=== PATIENT | female | born 1985 | race Caucasian/White ===

== ENCOUNTER → 2018-01-07 | Outpatient (CLI) | payer MEDICAID ==
--- NOTE | 2018-01-07 15:07 | RADIOLOGY REPORT (SQ) ---
EXAM DESCRIPTION: U/S OB 14+ TRNABD 1GES W/O DOP COMPLETED DATE/TIME: 01/07/2018 2:38 pm REASON FOR STUDY: ENCTR FOR SUPERVISION OF OTHER NORMAL , 3RD TRIMESTER (Z34.83) Z34.83 EN COUNTER FOR SUPRVSN OF NORMAL , THIRD TRIM COMPARISON: None. TECHNIQUE: Static and Dynamic grayscale imaging performed of gravid uterus using transabdominal appr oach. Additional selected color Doppler and spectral images recorded. All stored on PACS. LIMITATIONS: None. FINDINGS: EGA: 28 weeks 1 day DEBBI: 03/31/2018 EFW: Twin a 1,144 +/-169 twin B 1125 +/- 167 grams PERCENTILE: Not recorded LVP: Twin a 6.7 cm twin B 8.6 cm PLACENTA: Twin a posterior and twin B fundal PRESENTATION: Twin A footling breech twin B breech ANATOMY: HEART RATE: Twin a 145 twin B not recorded beats per minute. FOUR CHAMBER HEART: Visualized. THREE VESSEL CORD: Yes. CORD INSERTION: Not seen. KIDNEYS AND BLADDER: Visualized. Appear normal. STOMACH: Visualized. Appears normal. SPINE: Normal as visualized. BRAIN AND LATERAL VENTRICLES: Visualized. Appear normal. OTHER: No other significant finding. MATERNAL ADNEXA: Maternal ovaries not visualized. CERVICAL LENGTH: 3.4 cm Closed. OTHER: No other significant finding. IMPRESSION: LIVING TWIN INTRAUTERINE . ESTIMATED GESTATIONAL AGE 28 WEEKS 1 DAY NO VISUALIZED ANOMALIES. Trimester of : Third trimester - 28 weeks to delivery. TECHNICAL DOCUMENTATION: JOB ID: [id number] [employer]- All Rights Reserved Reading location - IP/workstation name: [email or web address]
--- NOTE | 2018-01-07 16:57 | RADIOLOGY REPORT (SQ) ---
EXAM DESCRIPTION: U/S 12829 + EACH ADDIT GEST COMPLETE DATE/TIME: 01/07/2018 2:38 pm REASON FOR STUDY: S/D Z34.83 ENCOUNTER FOR SUPRVSN OF NORMAL , THIRD TRIM FINDINGS: Please see combined report for performance of procedure and radiologic supervision and int erpretation. IMPRESSION: Please see combined report for performance of procedure and radiologic supervision and i nterpretation. Reading location - IP/workstation name: [email or web address]
== END ==
LOC: RAD 12:42
PROVIDERS: ATTEND Nurse Practitioner Women's Health
DX: O30.003 Twin pregnancy, unspecified number of placenta and unspecified number of amniotic sacs, third trimester (principal); Z3A.28 28 weeks gestation of pregnancy
CPT/HCPCS: 76805; 76810

== ENCOUNTER 2018-02-05 12:16 | Outpatient (CLI) | payer MEDICAID ==
[2018-02-05 13:06] LABS: APPEARANCE,URINE CLEAR; BILIRUBIN,URINE NEGATIVE (NEGATIVE); COLOR,URINE YELLOW; GLUCOSE, URINE NEGATIVE (NEGATIVE); KETONES,URINE NEGATIVE (NEGATIVE); LEUKOCYTE ESTERASE,URINE NEGATIVE (NEGATIVE); NITRITE,URINE NEGATIVE (NEGATIVE); PROTEIN,URINE NEGATIVE (NEGATIVE); URINE SPECIFIC GRAVITY 1.014; UROBILINOGEN,URINE NEGATIVE mg/dL (<2.0)
[2018-02-05 13:07] LABS: ABSOLUTE EOSINOPHILS # (AUTO) 0.1 10^3/uL (0.0-0.6); ABSOLUTE LYMPHOCYTES (AUTO) 1.6 10^3/uL (0.5-4.7); ABSOLUTE MONOCYTES (AUTO) 0.4 10^3/uL (0.1-1.4); BASOPHILS % (AUTO) 0.2 % (0-2); EOSINOPHILS % (AUTO) 1.1 % (0-6); HEMOGLOBIN 12.5 g/dL (12.0-15.5); LYMPHOCYTES % (AUTO) 17.1 % (13-45); MEAN CORPUSCULAR HEMOGLOBIN 30.8 pg (27.0-33.4); MEAN CORPUSCULAR HGB CONC 34.7 g/dL (32.0-36.0); MEAN CORPUSCULAR VOLUME 89 fl (80-97); MONOCYTES % (AUTO) 4.9 % (3-13); PLATELET COUNT 200 10^3/uL (150-450); RED BLOOD COUNT 4.06 10^6/uL (3.72-5.28); RED CELL DISTRIBUTION WIDTH 12.5 % (11.5-14.0); SEGMENTED NEUTROPHILS % (AUTO) 76.7 % (42-78); TOTAL CELLS COUNTED % (AUTO) 100 %; WHITE BLOOD COUNT 9.1 10^3/uL (4.0-10.5)
[2018-02-05 13:26] LABS: UR PRO/CREAT RATIO RESULT 0.1 mg/mg (0.0-0.2); URINE CREATININE 98.8 mg/dL (16-327); URINE PROTEIN 10.8 mg/dL (<12)
[2018-02-05 13:40] LABS: URINE AMPHETAMINES SCREEN NEGATIVE; URINE BARBITURATES SCREEN NEGATIVE; URINE BENZODIAZEPINES SCREEN NEGATIVE; URINE COCAINE SCREEN NEGATIVE; URINE MARIJUANA (THC) SCREEN NEGATIVE; URINE METHADONE SCREEN NEGATIVE; URINE PHENCYCLIDINE SCREEN NEGATIVE
[2018-02-05 13:44] LABS: ALANINE AMINOTRANSFERASE 32 U/L (9-52); ALBUMIN 2.9 g/dL (3.5-5.0); ALKALINE PHOSPHATASE 129 U/L (38-126); ANION GAP 9 (5-19); ASPARTATE AMINO TRANSFERASE 35 U/L (14-36); BILIRUBIN,DIRECT 0.2 mg/dL (0.0-0.4); BILIRUBIN,TOTAL 0.3 mg/dL (0.2-1.3); BLOOD UREA NITROGEN 11 mg/dL (7-20); CALCIUM 8.9 mg/dL (8.4-10.2); CARBON DIOXIDE 21 mmol/L (22-30); CHLORIDE 108 mmol/L (98-107); GLUCOSE 65 mg/dL (75-110); LDH 587 U/L (313-618); POTASSIUM 3.9 mmol/L (3.6-5.0); TOTAL PROTEIN 5.7 g/dL (6.3-8.2); URIC ACID 4.1 mg/dL (2.5-6.2)
== END 2018-02-05 14:21 | disposition home or self-care (01) ==
LOC: LC 12:16
PROVIDERS: ATTEND Obstetrics & Gynecology
PROC: 4A1HXCZ Monitoring of Products of Conception, Cardiac Rate, External Approach (ICD-10-PCS; principal; 2018-02-05)
DX: O47.03 False labor before 37 completed weeks of gestation, third trimester (principal); Z3A.32 32 weeks gestation of pregnancy
CPT/HCPCS: 36415; 59025; 80053; 80307; 81001; 82570; 83615; 84156; 84550; 85025

== ENCOUNTER 2018-03-07 12:00 | Outpatient (CLI) | payer MEDICAID ==
--- NOTE | 2018-03-07 12:04 | Non Stress Test Report ---
Non Stress Test Datetime Report Generated by CPN: 03/07/2018 12:04 DEMOGRAPHIC EGA NST: 32.2 INDICATION Indication for Study: Gestational Hypertension MONITORING Monitor Explained: Monitor Explained; Test Explained; Patient Verbalized Understanding Time on Monitor: 02/05/2018 12:36 Time off Monitor: 02/05/2018 14:12 NST Duration: 96 NST INTERVENTIONS NST Interventions: PO Hydration; Reposition Patient Physician Notified NST: J.Matute, CNM BABY A: [id number] BABY A Movement : Present Contraction Frequency : Irregular FHR Baseline : 140 Accelerations : 15X15 Decelerations : None Variability : Moderate 6-25bpm NST Review: Meets Criteria for Reactive NST NST Review and Verified By : Phyllis Nobles RNC NST Results: Reactive BABY B Movement: Present FHR Baseline: 135 Accelerations: 15X15 Decelerations: None Variability: Moderate 6-25bpm NST Review: Meets Criteria for Reactive NST NST Reviewed And Verified By: Phyllis Camp RNC NST Results: Reactive NST REPORT Report Trigger: Send Report
[2018-03-07 12:36] LABS: APPEARANCE,URINE CLEAR; BILIRUBIN,URINE NEGATIVE (NEGATIVE); COLOR,URINE YELLOW; GLUCOSE, URINE NEGATIVE (NEGATIVE); KETONES,URINE NEGATIVE (NEGATIVE); LEUKOCYTE ESTERASE,URINE NEGATIVE (NEGATIVE); NITRITE,URINE NEGATIVE (NEGATIVE); PROTEIN,URINE NEGATIVE (NEGATIVE); URINE SPECIFIC GRAVITY 1.012; UROBILINOGEN,URINE NEGATIVE mg/dL (<2.0)
[2018-03-07 12:55] LABS: ABSOLUTE EOSINOPHILS # (AUTO) 0.2 10^3/uL (0.0-0.6); ABSOLUTE LYMPHOCYTES (AUTO) 1.3 10^3/uL (0.5-4.7); ABSOLUTE MONOCYTES (AUTO) 0.4 10^3/uL (0.1-1.4); ABSOLUTE NEUT (AUTO) 7.6 10^3/uL (1.7-8.2); BASOPHILS % (AUTO) 0.2 % (0-2); EOSINOPHILS % (AUTO) 2.2 % (0-6); HEMATOCRIT 35.1 % (36.0-47.0); HEMOGLOBIN 12.3 g/dL (12.0-15.5); MEAN CORPUSCULAR HEMOGLOBIN 30.7 pg (27.0-33.4); MEAN CORPUSCULAR HGB CONC 35.1 g/dL (32.0-36.0); MEAN CORPUSCULAR VOLUME 88 fl (80-97); MONOCYTES % (AUTO) 4.2 % (3-13); PLATELET COUNT 192 10^3/uL (150-450); RED BLOOD COUNT 4.01 10^6/uL (3.72-5.28); RED CELL DISTRIBUTION WIDTH 13.3 % (11.5-14.0); SEGMENTED NEUTROPHILS % (AUTO) 79.4 % (42-78); TOTAL CELLS COUNTED % (AUTO) 100 %; WHITE BLOOD COUNT 9.5 10^3/uL (4.0-10.5)
[2018-03-07 13:05] LABS: URINE AMPHETAMINES SCREEN NEGATIVE; URINE BARBITURATES SCREEN NEGATIVE; URINE BENZODIAZEPINES SCREEN NEGATIVE; URINE COCAINE SCREEN NEGATIVE; URINE MARIJUANA (THC) SCREEN NEGATIVE; URINE METHADONE SCREEN NEGATIVE; URINE PHENCYCLIDINE SCREEN NEGATIVE
--- NOTE | 2018-03-07 13:08 | Non Stress Test Report ---
Non Stress Test Datetime Report Generated by CPN: 03/07/2018 13:07 DEMOGRAPHIC EGA NST: 36.4 INDICATION Indication for Study: Ordered by Provider MONITORING Monitor Explained: Monitor Explained; Test Explained; Patient Verbalized Understanding Time on Monitor: 03/07/2018 12:18 Time off Monitor: 03/07/2018 13:06 NST Duration: 48 NST INTERVENTIONS NST Interventions: PO Hydration Physician Notified NST: A Guadalupe CNM BABY A Movement : Present Contraction Frequency : irr FHR Baseline : 150 Accelerations : 15X15 Decelerations : None Variability : Moderate 6-25bpm NST Review: Meets Criteria for Reactive NST NST Review and Verified By : Breanna Basurto RN NST Results: Reactive BABY B Movement: Present FHR Baseline: 145 Accelerations: 15X15 Decelerations: None Variability: Moderate 6-25bpm NST Review: Meets Criteria for Reactive NST NST Reviewed And Verified By: A Basurto RN NST Results: Reactive NST REPORT Report Trigger: Send Report
[2018-03-07 13:10] LABS: UR PRO/CREAT RATIO RESULT 0.1 mg/mg (0.0-0.2); URINE CREATININE 99.9 mg/dL (16-327); URINE PROTEIN 10.7 mg/dL (<12)
[2018-03-07 13:25] LABS: ALANINE AMINOTRANSFERASE 25 U/L (9-52); ALBUMIN 2.8 g/dL (3.5-5.0); ALKALINE PHOSPHATASE 187 U/L (38-126); ANION GAP 11 (5-19); ASPARTATE AMINO TRANSFERASE 28 U/L (14-36); BILIRUBIN,DIRECT 0.2 mg/dL (0.0-0.4); BILIRUBIN,TOTAL 0.3 mg/dL (0.2-1.3); BLOOD UREA NITROGEN 10 mg/dL (7-20); CALCIUM 8.5 mg/dL (8.4-10.2); CARBON DIOXIDE 21 mmol/L (22-30); CHLORIDE 110 mmol/L (98-107); GLUCOSE 73 mg/dL (75-110); LDH 585 U/L (313-618); POTASSIUM 3.9 mmol/L (3.6-5.0); SODIUM 141.5 mmol/L (137-145); TOTAL PROTEIN 5.6 g/dL (6.3-8.2); URIC ACID 5.3 mg/dL (2.5-6.2)
== END 2018-03-07 13:53 | disposition home or self-care (01) ==
LOC: LC 12:00
PROVIDERS: ATTEND Obstetrics & Gynecology
PROC: 4A1HXCZ Monitoring of Products of Conception, Cardiac Rate, External Approach (ICD-10-PCS; principal; 2018-03-07)
DX: O13.3 Gestational [pregnancy-induced] hypertension without significant proteinuria, third trimester (principal); O30.043 Twin pregnancy, dichorionic/diamniotic, third trimester; Z3A.36 36 weeks gestation of pregnancy
CPT/HCPCS: 36415; 59025; 80053; 80307; 81001; 82570; 83615; 84156; 84550; 85025

== ENCOUNTER 2018-03-10 06:00 | Inpatient (IN) | payer MEDICAID ==
[2018-03-10] MEDS ORDERED: LIDOCAINE 1% INJ-PF (10 MG/ML) 30 ML SDV ONE (06:06)
[2018-03-10] MEDS ORDERED: OXYTOCIN/NORMAL SALINE 20 UNIT/1,000 ML RTUINJ ONE ×2 (06:06→20:23)
[2018-03-10] MEDS ORDERED: PENICILLIN G-K 5 MILLION UNIT VIAL ONE ×5 (06:06→23:32)
[2018-03-10] MEDS ORDERED: MISOPROSTOL 0.2 MG TABLET ONE (06:06)
[2018-03-10] MEDS ORDERED: RINGERS SOLUTION,LACTATED 300 ML IV ONE (06:15)
[2018-03-10] MEDS ORDERED: PENICILLIN G POTASSIUM 5,000,000 UNIT in DEXTROSE 5%-WATER 100 ML IV ONE (06:15)
[2018-03-10] MEDS ORDERED: RINGERS SOLUTION,LACTATED 1,000 ML IV PRN (06:15)
[2018-03-10 07:06] LABS: ABSOLUTE EOSINOPHILS # (AUTO) 0.2 10^3/uL (0.0-0.6); ABSOLUTE LYMPHOCYTES (AUTO) 1.8 10^3/uL (0.5-4.7); ABSOLUTE MONOCYTES (AUTO) 0.5 10^3/uL (0.1-1.4); ABSOLUTE NEUT (AUTO) 5.5 10^3/uL (1.7-8.2); BASOPHILS % (AUTO) 0.4 % (0-2); EOSINOPHILS % (AUTO) 2.5 % (0-6); HEMATOCRIT 34.6 % (36.0-47.0); HEMOGLOBIN 12.2 g/dL (12.0-15.5); LYMPHOCYTES % (AUTO) 22.7 % (13-45); MEAN CORPUSCULAR HEMOGLOBIN 31.1 pg (27.0-33.4); MEAN CORPUSCULAR HGB CONC 35.2 g/dL (32.0-36.0); MEAN CORPUSCULAR VOLUME 88 fl (80-97); MONOCYTES % (AUTO) 5.9 % (3-13); PLATELET COUNT 190 10^3/uL (150-450); RED BLOOD COUNT 3.92 10^6/uL (3.72-5.28); RED CELL DISTRIBUTION WIDTH 13.5 % (11.5-14.0); SEGMENTED NEUTROPHILS % (AUTO) 68.5 % (42-78); TOTAL CELLS COUNTED % (AUTO) 100 %
[2018-03-10 07:29] LABS: ALANINE AMINOTRANSFERASE 24 U/L (9-52); ALBUMIN 2.6 g/dL (3.5-5.0); ALKALINE PHOSPHATASE 181 U/L (38-126); ANION GAP 7 (5-19); ASPARTATE AMINO TRANSFERASE 30 U/L (14-36); BILIRUBIN,DIRECT 0.2 mg/dL (0.0-0.4); BILIRUBIN,TOTAL 0.3 mg/dL (0.2-1.3); BLOOD UREA NITROGEN 10 mg/dL (7-20); CARBON DIOXIDE 23 mmol/L (22-30); CHLORIDE 109 mmol/L (98-107); GLUCOSE 83 mg/dL (75-110); LDH 540 U/L (313-618); POTASSIUM 3.7 mmol/L (3.6-5.0); SODIUM 138.9 mmol/L (137-145); TOTAL PROTEIN 5.3 g/dL (6.3-8.2); URIC ACID 5.6 mg/dL (2.5-6.2)
[2018-03-10 07:30] LABS: APPEARANCE,URINE SLIGHTLY-CLOUDY; BILIRUBIN,URINE NEGATIVE (NEGATIVE); COLOR,URINE STRAW; GLUCOSE, URINE NEGATIVE (NEGATIVE); KETONES,URINE NEGATIVE (NEGATIVE); LEUKOCYTE ESTERASE,URINE TRACE (NEGATIVE); NITRITE,URINE NEGATIVE (NEGATIVE); PROTEIN,URINE NEGATIVE (NEGATIVE); URINE SPECIFIC GRAVITY 1.003; UROBILINOGEN,URINE NEGATIVE mg/dL (<2.0)
[2018-03-10 07:38] LABS: URINE AMPHETAMINES SCREEN NEGATIVE; URINE BARBITURATES SCREEN NEGATIVE; URINE BENZODIAZEPINES SCREEN NEGATIVE; URINE COCAINE SCREEN NEGATIVE; URINE MARIJUANA (THC) SCREEN NEGATIVE; URINE METHADONE SCREEN NEGATIVE; URINE PHENCYCLIDINE SCREEN NEGATIVE
[2018-03-10 09:23] LABS: UR PRO/CREAT RATIO RESULT 0.5 mg/mg (0.0-0.2); URINE CREATININE 29.9 mg/dL (16-327); URINE PROTEIN 15.5 mg/dL (<12)
[2018-03-10] MEDS: PENICILLIN G POTASSIUM 2,500,000 UNIT in DEXTROSE 5%-WATER 50 ML IV SCH ×3 (10:16→20:04)
--- NOTE | 2018-03-10 11:01 | Admission Physical ---
Datetime Report Generated by CPN: 03/10/2018 11:00 CURRENT ADMISSION Chief Complaint: Scheduled Induction of Labor Indication for Induction: Gestational HTN; Other Indication for Induction- Other: di/di twin gestation Admit Impression : No Active Labor; Induction of Labor; Admit Plan: Admit to Unit; Initiate Labor Induction Protocol ALLERGIES Medication Allergies: No Medication Allergies: No Known Drug Allergies (03/10/2018) Latex: No Latex Allergies Food Allergies: none Environmental Allergies: none OBSTETRICAL HISTORY EDC: 03/31/2018 00:00 : 4 Para: 3 Term: 3 : 0 SAB: 0 IAB: 0 Ectopic: 0 Livin Cesareans: 1 VBACs: 0 Multiple Births: 0 Gestational Diabetes: No Rh Sensitization: No Incompetent Cervix: No INA: No Infertility: No ART Treatment: No Uterine Anomaly: No IUGR: No Hx Previous C/S: Yes Macrosomia: No Hx Loss/Stillborn: No PIH: No Hx : No Placenta Previa/Abruption: No Depression/PP Depression: No PTL/PROM: No Post Hemorrhage: No Current Procedures: Ultrasound; NST Obstetrical History Comments: G1 - 2008, G2 - 2009, G3 - 2013, 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 [id number] MEDICAL HISTORY Diabetes: No Blood Transfusion: No Pulmonary Disease (Asthma, TB): No Breast Disease: No Hypertension: No Dominatrix Surgery: No Heart Disease: No Hosp/Surgery: Yes Autoimmune Disorder: No Anesthetic Complications: No Kidney Disease: No Abnormal Pap Smear: No Neuro/Epilepsy: No Psychiatric Disorders: No Other Medical Diseases: No Hepatitis/Liver Disease: No Significant Family History: No Varicosities/Phlebitis: No Trauma/Violence : No Thyroid Dysfunction: No Medical History Comments: Childbirth- x 2 and x 1; INFECTIOUS HISTORY Gonorrhea: No Genital Herpes: No Chlamydia: No Tuberculosis: No Syphilis: No Hepatitis: No HIV/AIDS Exposure: No Rash or Viral Illness: No HPV: No PHYSICAL EXAM General: Normal HEENT: Normal Neurologic: Normal Thyroid: Normal Heart: Normal Lungs: Normal Breast: Normal Back: Normal Abdomen: Normal Genitourinary Exam: Normal Extremities: Normal DTRs: Normal Pelvic Type: Adequate Vital Signs: Reviewed Details Vital Signs: elevated pressures with one in severe range VAGINAL EXAM Dilatation: 1 Effacement: 50 Station: -2 MEMBRANES Pooling: Negative Membranes: Intact FETUS A EGA: 37.0 Monitoring: External US FHR- Baseline: 150 Variability: Moderate 6-25bpm Accelerations: 15X15 Decelerations: None FHR Category: Category I Estimated Weight (gm): 2800 Presentation: Vertex Admit Comment: counseled on risks of uterine rupture and assoc'd sequela. Counseled on risks of abruption and intolerance to labor due to hypertension. discussed with patient that my threshold for repeat c/section would be low due to risks assoc'd with hypertensive disorder. Patient did indicate that if she did require a c/section for any indication that she would desire a tubal ligation with the procedure. Aamir Flower RN and Mary Tran CNM present for discussion. FETUS B Monitoring: External US Variability: Moderate 6-25bpm Accelerations: 15X15 Decelerations: None FHR Category: Category I Estimated Weight (gm): 2900 Presentation: Vertex PLANS FOR LABOR AND DELIVERY Labor and Delivery: None Pain Management: Epidural Feeding Preference: Breast Benefit of Breast Feed Discussed: Yes Circumcision: Yes INFORMED CONSENT Signature: with User ID: [email or web address]
[2018-03-10] MEDS ORDERED: FENTANYL/BUPIVACAINE/NS/PF 300 MCG/150 ML RTUINJ EPI ONE (19:13)
[2018-03-10] MEDS ORDERED: BUPIVACAINE HCL 0.25 % INJ/PF (2.5 MG/1 ML) 30 ML VIAL ONE (19:13)
[2018-03-10] MEDS ORDERED: EPHEDRINE SULFATE INJ 50 MG/1 ML AMPULE ONE ×2 (19:13→20:22)
[2018-03-10] MEDS ORDERED: OXYTOCIN 10 UNIT/ML VIAL ONE (20:22)
[2018-03-10] MEDS ORDERED: KETOROLAC TROMETHAMINE INJ/PF 30 MG/1 ML SDV ONE (20:22)
[2018-03-10] MEDS ORDERED: FENTANYL CITRATE INJ/PF 100 MCG/2 ML AMPUL ONE (20:22)
[2018-03-10] MEDS ORDERED: ACETAMINOPHEN 0 MG/0 ML RTUPB IV ONE (20:23)
[2018-03-10] MEDS ORDERED: ONDANSETRON HCL INJ/PF 4 MG/2 ML SDV ONE (20:23)
[2018-03-10] MEDS ORDERED: MIDAZOLAM 2 MG/2 ML INJ ONE (20:23)
[2018-03-10] MEDS ORDERED: CARBOPROST TROMETHAMINE INJ 250 MCG/1 ML AMPULE ONE (22:44)
[2018-03-10] MEDS ORDERED: LOPERAMIDE HCL 2 MG CAPSULE ONE (22:44)
[2018-03-10] MEDS ORDERED: LIDOCAINE 2% INJ-PF (20 MG/ML) 10 ML AMPUL ONE (23:06)
[2018-03-11] MEDS ORDERED: OXYTOCIN/NORMAL SALINE 20 UNIT/1,000 ML RTUINJ ONE (00:11)
[2018-03-11] MEDS ORDERED: NA PHOS,M-B/NA PHOS,DI-BA (ADULT) 133 ML ENEMA PR PRN (00:15)
[2018-03-11] MEDS ORDERED: BENZOCAINE/MENTHOL AEROSOL SPRAY 56 ML TOP PRN (00:15)
[2018-03-11] MEDS ORDERED: ACETAMINOPHEN 650 MG SUPP.RECT PR PRN (00:15)
[2018-03-11] MEDS ORDERED: ZOLPIDEM TARTRATE 5 MG TABLET PO PRN (00:15)
[2018-03-11] MEDS ORDERED: DIPH/PERTUSS(ACELL)/TETANUS VAC/PF 0.5 ML SYR (>=10YO) IM PRN (00:15)
[2018-03-11] MEDS ORDERED: GLYCERIN/WITCH HAZEL LEAF 1 EACH MED..PAD TP PRN (00:15)
[2018-03-11] MEDS ORDERED: DIBUCAINE 1% OINTMENT 28 GM TP PRN (00:15)
[2018-03-11] MEDS ORDERED: PROMETHAZINE HCL 25 MG TABLET PO PRN (00:15)
[2018-03-11] MEDS ORDERED: PROMETHAZINE HCL 25 MG SUPP.RECT PR PRN (00:15)
[2018-03-11] MEDS ORDERED: OXYTOCIN/NORMAL SALINE 20 UNIT/1,000 ML RTUINJ IV PRN (00:15)
[2018-03-11] MEDS ORDERED: PSEUDOEPHEDRINE HCL 30 MG TABLET PO PRN (00:15)
[2018-03-11] MEDS ORDERED: PROMETHAZINE HCL INJ 25 MG/1 ML VIAL IV PRN (00:15)
[2018-03-11] MEDS ORDERED: DIPHENHYDRAMINE HCL 25 MG CAPSULE PO PRN (00:15)
[2018-03-11] MEDS ORDERED: MAGNESIUM HYDROXIDE SUSP 30 ML UDCUP PO PRN (00:15)
[2018-03-11] MEDS ORDERED: ACETAMINOPHEN WITH CODEINE #3 TABLET PO PRN ×2 (00:15)
[2018-03-11] MEDS ORDERED: MEASLES,MUMPS&RUBELLA VACC/PF 0.5 ML VIAL SUBCUT PRN (00:15)
--- NOTE | 2018-03-11 01:43 | Delivery Summary ---
Del Sum A-C Datetime Report Generated by CPN: 03/11/2018 01:42 DELIVERY PERSONNEL DELIVERY PERSONNEL: [id number] Delivery Doctor:: Eboni Marti MD Anesthesiologist:: Mikel Roman MD STAFFING CLERK:: Be Manley CRNA Labor and Delivery Nurse:: Adriana Ocampo RNcancer researcher Nurse:: Nena Yadav RN Nursery Nurse:: Daina Harrington RN MSN Nursery Nurse:: Ibis Mijares RN Student Observers:: Guanakito ALASA General Surgeon/COIN PURSE ASSEMBLER: [facility] General Surgeon/COIN PURSE ASSEMBLER: [facility] Additional Personnel: : Amina Ma RN MATERNAL INFORMATION Delivery Anesthesia: Epidural Medications After Delivery: Pitocin Bolus-Please Comment Meds After Delivery Comment: Pitocin 20 units in 1 L NS bolused x2 bags Estimated Blood Loss (ml): 300 Maternal Complications: None LABOR SUMMARY EDC: 03/31/2018 00:00 No. Babies in Womb: 2 Attempted: Yes Labor Anesthesia: Epidural LABOR INFORMATION Reason for Induction: Chronic Primary/Essential HTN; Other Reason for Induction- Other: Di/Di Twins Onset of Labor: 03/10/2018 19:54 Complete Dilatation: 03/10/2018 21:40 Cervical Ripening Agents: Chaudhry Balloon Oxytocin: Induction Group B Beta Strep: Postive Antibiotics # of Doses: 5 Antibiotics Time of Last Dose: 2338 Name of Antibiotic Given: Penicillin Steroids Given: None Reason Steroids Not Administered: Not Applicable MEMBRANES Membranes Rupture Method: Artificial Rupture of Membranes: 03/10/2018 19:54 Length of Rupture (hr): 3.58 Amniotic Fluid Color: Clear Amniotic Fluid Amount: Small Amniotic Fluid Odor: Normal STAGES OF LABOR Stage 1 hr: 1 Stage 1 min: 46 Stage 2 hr: 1 Stage 2 min: 49 Stage 3 hr: 0 Stage 3 min: 24 Total Time in Labor hr: 3 Total Time in Labor min: 59 VAGINAL DELIVERY Episiotomy: None Laceration #1: None Laceration Extension #1: N/A Laceration Repair: Not Applicable Sponge Count Correct: N/A Sharps Count Correct: N/A CSECTION DELIVERY Primary Indication: N/A Secondary Indication: N/A CSection Incidence: N/A Labor: N/A Elective: N/A CSection Incision: N/A BABY A INFORMATION Delivery Date/Time: 03/10/2018 23:29 Method of Delivery: Vaginal Born in Route : No : Successful Forceps: N/A Vacuum Extraction: N/A Shoulder Dystocia : No PRESENTATION/POSITION BABY A Presentation: Cephalic Cephalic Presentation: Vertex Vertex Position: Right Occipital Anterior Breech Presentation: N/A PLACENTA INFORMATION BABY A Placenta Delivery Time : 03/10/2018 23:53 Placenta Method of Delivery: Spontaneous Placenta Status: Delivered SCORES BABY A Heart Rate 1 min: >100 bpm Resp Effort 1 min: Good Cry Reflex Irritability 1 min: Cough or Sneeze or Pulls Away Muscle Tone 1 min: Active Motion Color 1 min: Body [place], Extremities Blue Resuscitation Effort 1 min: Tactile Stimulation SCORE 1 MIN: 9 Heart Rate 5 min: >100 bpm Resp Effort 5 min: Good Cry Reflex Irritability 5 min: Cough or Sneeze or Pulls Away Muscle Tone 5 min: Active Motion Color 5 min: Body [place], Extremities Blue Resuscitation Effort 5 min: Tactile Stimulation SCORE 5 MIN: 9 INFANT INFORMATION BABY A Gestational Age at Delivery: 37.0 Gestational Status: Early Term- 37- 38.6 Weeks Outcome : Liveborn Condition : Stable Infant Sex: Male IDENTIFICATION BABY A Infant Verification Date/Time: 03/10/2018 23:39 ID Band Number: [id number] Mother's Name Verified: Yes RN Verifying Infant: B Butler, RN Additional Verifying Personnel: D Stephanie, COIN PURSE ASSEMBLER WEIGHT/LENGTH BABY A Birthweight (gm): 2440 Infant Weight (lb): 5 Infant Weight (oz): 6 Length (in): 19.00 Infant Length (cm): 48.26 CORD INFORMATION BABY A No. Cord Vessels: 3 Nuchal Cord : N/A Nuchal Cord- Other: Left Compound Hand Cord Blood Taken: Yes-For Storage (Mom's Blood type +) Infant Suction: Mouth; Nose ASSESSMENT BABY A Complications: Multiple Variable Decels Physical Findings at Delivery: Caput Succedaneum; Molding of the Head Respirations: Grunting; Intercostal Retractions Skin to Skin: No Specimen Accessioner/ALS Called : No Infant Care By: Efren Mijares RN Transferred To: [facility] BABY B INFORMATION Delivery Date/Time: 03/10/2018 23:49 Method of Delivery : Vaginal Born in Route : No : Successful Forceps : N/A Vacuum Extraction: N/A Shoulder Dystocia : No SHOULDER DYSTOCIA BABY B Delivery Date/Time: 03/10/2018 23:49 PRESENTATION/POSITION BABY B Presentation : Breech Cephalic Position : N/A Breech Position: Double Footling ROM/PLACENTA INFO BABY B Rupture of Membranes: 03/10/2018 23:48 Length of Rupture (hr): 0.02 Placenta Delivery Time : 03/10/2018 23:58 Placenta Method of Delivery: Spontaneous Placental Status : Delivered SCORES BABY B Heart Rate 1 min: >100 bpm Resp Effort 1 min: Good Cry Reflex Irritability 1 min: Cough or Sneeze or Pulls Away Muscle Tone 1 min: Active Motion Color 1 min: Body [place], Extremities Blue Resuscitation Effort 1 min: Tactile Stimulation SCORE 1 MIN: 9 Heart Rate 5 min: >100 bpm Resp Effort 5 min: Good Cry Reflex Irritability 5 min: Cough or Sneeze or Pulls Away Muscle Tone 5 min: Active Motion Color 5 min: Body [place], Extremities Blue Resuscitation Effort 5 min: Tactile Stimulation SCORE 5 MIN: 9 INFORMATION BABY B Gestational Age at Delivery: 37.0 Gestational Status : Early Term- 37- 38.6 Weeks Infant Outcome : Liveborn Condition : Stable Infant Sex : Female IDENTIFICATION BABY B Verification Date/Time: 03/10/2018 23:55 ID Band Number : [id number] Mother's Name Verified: Yes RN Verifying : D Stephanie US/D [employer] RNC WEIGHT/LENGTH BABY B Birthweight (gm): 2285 Infant Weight (lb) : 5 Infant Weight (oz): 1 Length (in): 18.50 Infant Length (cm): 46.99 CORD INFORMATION BABY B No. Cord Vessels : 3 Nuchal Cord : N/A Cord Blood Taken : Yes-For Storage (Mom's Blood Type +) Infant Suction : Mouth; Nose ASSESSMENT BABY B Infant Complications : None Physical Findings at Delivery: Within Normal Limits Respirations : Appears Normal Skin to Skin: Yes Specimen Accessioner/ALS Called : No Infant Care By : Ana M Harrington RN Transfer To: Nursery SIGNATURES Signature: with User ID: [email or web address]
[2018-03-11] MEDS: PENICILLIN G POTASSIUM 2,500,000 UNIT in DEXTROSE 5%-WATER 50 ML IV SCH ×5 (02:05→14:16)
--- NOTE | 2018-03-11 07:49 | PDOC PROGRESS REPORT ---
Subjective-OB Progress Note for:: 03/11/18 Subjective: s/p of twins day #1 Doing well, lochia is stable, pain well controlled, voiding without difficulty. Physical Exam (OB) Vital Signs: Intake & Output 03/10/18 03/11/18 03/12/18 06:59 06:59 06:59 Weight 75 kg - Lochia Lochia Amount: Scant < 10 ml - Abdomen Description: Tender Hernia Present: No Bowel Sounds: Normoactive Fundal Description: Firm Fundal Height: 1/u - 2/u Objective-Diagnostic Laboratory: 03/10/18 06:45 03/10/18 06:45 03/10/18 06:45 Blood Type A POSITIVE Antibody Screen NEGATIVE Assessment and Plan(PN) - Assessment and Plan (1) Vaginal delivery Is this a current diagnosis for this admission?: Yes Plan: routine pp care - Time Spent with Patient Time with patient: Less than 15 minutes Critical Time spent with patient: Less than 15 minutes Medications reviewed and adjusted accordingly: Yes - Disposition Anticipated Discharge: Home Within: within 24 hours
[2018-03-11] MEDS: FERROUS SULFATE 325 MG TABLET PO SCH ×2 (09:22→18:34)
[2018-03-11] MEDS: SENNOSIDES/DOCUSATE 8.6-50 MG 1 EACH TABLET PO SCH (09:23)
[2018-03-11] MEDS: PRENATAL VITAMIN W DHA CAPSULE PO SCH (09:23)
[2018-03-11] MEDS: DOCUSATE SODIUM 100 MG CAPSULE PO SCH ×2 (09:24→18:34)
[2018-03-11] MEDS: FAMOTIDINE 20 MG TABLET PO SCH ×2 (09:24→21:08)
[2018-03-11] MEDS ORDERED: [UNRECOGNIZED DRUG - REMARK] PO SCH (10:00)
[2018-03-11 10:17] LABS: HEMOGLOBIN 10.9 g/dL (12.0-15.5); MEAN CORPUSCULAR HEMOGLOBIN 31.1 pg (27.0-33.4); MEAN CORPUSCULAR VOLUME 89 fl (80-97); PLATELET COUNT 166 10^3/uL (150-450); RED BLOOD COUNT 3.49 10^6/uL (3.72-5.28); RED CELL DISTRIBUTION WIDTH 13.3 % (11.5-14.0); WHITE BLOOD COUNT 10.8 10^3/uL (4.0-10.5)
[2018-03-11] MEDS: IBUPROFEN 800 MG TABLET PO SCH ×3 (11:34→21:08)
[2018-03-12] MEDS: IBUPROFEN 800 MG TABLET PO SCH ×2 (05:06→14:33)
[2018-03-12 09:09] VITALS: BP 133/90
[2018-03-12] MEDS: PRENATAL VITAMIN W DHA CAPSULE PO SCH (09:30)
[2018-03-12] MEDS: SENNOSIDES/DOCUSATE 8.6-50 MG 1 EACH TABLET PO SCH (09:31)
[2018-03-12] MEDS: FERROUS SULFATE 325 MG TABLET PO SCH ×2 (09:31→17:41)
[2018-03-12] MEDS: DOCUSATE SODIUM 100 MG CAPSULE PO SCH ×2 (09:31→17:41)
[2018-03-12] MEDS: FAMOTIDINE 20 MG TABLET PO SCH (09:31)
--- NOTE | 2018-03-12 10:32 | PDOC DISCHARGE SUMMARY ---
Final Diagnosis Discharge Date: 03/12/18 - Final Diagnosis (1) Dichorionic diamniotic twin Is this a current diagnosis for this admission?: Yes (2) Vaginal delivery Is this a current diagnosis for this admission?: Yes Discharge Data - Discharge Medication Prescriptions: Ibuprofen [Motrin 800 mg Tablet] 800 mg PO Q8 #60 tablet Home Medications: Pnv with Ca,No.71/Iron/FA [ Vitamin Tablet] 1 each PO DAILY 05/21/14 Ibuprofen [Motrin 800 mg Tablet] 800 mg PO Q8 #60 tablet 03/12/18 Reason(s) for Admission: Induction of Labor Procedures: NST Intrapartum Procedure(s): Spontaneous Vaginal Delivery - Diagnosis Test Laboratory: Temp Pulse Resp BP Pulse Ox 98.2 F 68 16 133/90 H 100 03/12/18 08:33 03/12/18 08:33 03/12/18 08:33 03/12/18 08:33 03/12/18 08:33 03/10/18 03/10/18 03/11/18 06:13 06:45 10:02 RBC 3.92 3.49 L Hgb 12.2 10.9 L Hct 34.6 L 31.0 L Urine Opiates Screen NEGATIVE - Discharge information/Instructions Discharge Activity: Balance Activity w/Rest, Pelvic Rest Discharge Diet: Regular Disposition: HOME, SELF-CARE Follow up with: [facility] in: 4, Weeks
== END 2018-03-12 19:00 | disposition home or self-care (01) | DRG 775 ==
LOC: LR 06:00 → 2S 03-11 08:49
PROVIDERS: ADMIT Obstetrics & Gynecology; ATTEND Obstetrics & Gynecology
PROC: 10E0XZZ Delivery of Products of Conception, External Approach (ICD-10-PCS; principal; 2018-03-10)
PROC: 4A1HXCZ Monitoring of Products of Conception, Cardiac Rate, External Approach (ICD-10-PCS; 2018-03-10)
DX: O32.8XX2 Maternal care for other malpresentation of fetus, fetus 2 (principal); O13.4 Gestational [pregnancy-induced] hypertension without significant proteinuria, complicating childbirth; O76 Abnormality in fetal heart rate and rhythm complicating labor and delivery; O30.043 Twin pregnancy, dichorionic/diamniotic, third trimester; O99.824 Streptococcus B carrier state complicating childbirth; O32.6XX0 Maternal care for compound presentation, not applicable or unspecified; Z37.2 Twins, both liveborn
CPT/HCPCS: 36415; 80053; 80307; 81001; 82570; 83615; 84156; 84550; 85025; 85027; 86592; 86850; 86900; 86901; 94760; J0131; J1885; J2250; J2405; J2540; J2590; J3010; J3490